=== PATIENT | female | born 2000 ===

== ENCOUNTER 2018-03-26 17:22 | Emergency (ER) | payer MEDICAID ==
[2018-03-26 18:27] VITALS: BMI 20.7
[2018-03-26] MEDS ORDERED: Lactated Ringer's 1,000 ML IV SCH (18:45)
[2018-03-26 19:21] LABS: SQUAMOUS EPITHIAL 4 /hpf (0-5); URINE BACTERIA OCC (<OCC); URINE BILIRUBIN NEGATIVE (NEGATIVE); URINE BLOOD NEGATIVE (NEGATIVE); URINE CLARITY CLOUDY (Clear); URINE COLOR YELLOW (YELLOW); URINE GLUCOSE (UA) NEG (Normal); URINE LEUKOCYTE ESTERASE LARGE Leu/uL (Negative); URINE PROTEIN 30 mg/dL (NEGATIVE); URINE UROBILINOGEN 0.2-1.0 mg/dL (0.2-1.0)
[2018-03-26 19:22] LABS: URIC ACID 7.3 mg/Dl (2.2-7.5)
[2018-03-26 20:17] LABS: BASO % 0.4 % (0.0-2.0); EOS % 0.7 % (0.0-4.0); HEMOGLOBIN 11.7 g/dL (12.0-16.0); LYMPH # 1.4 K/uL (1.0-4.3); LYMPH % 22.6 % (20.0-40.0); MEAN CELL VOLUME 84.4 fl (81.0-99.0); MEAN CORPUSCULAR HEMOGLOBIN 28.3 pg (27.0-31.0); MEAN CORPUSCULAR HGB CONC 33.5 g/dL (33.0-37.0); MEAN PLATELET VOLUME 11.5 fl (7.2-11.7); MONO # 0.9 K/uL (0.0-0.8); NEUT # 3.9 K/uL (1.8-7.0); NEUT % 62.3 % (50.0-75.0); NRBC % 0.5 % (0.0-0.0); RBC 4.15 Mil/uL (3.80-5.20); RED CELL DISTRIBUTION WIDTH 13.3 % (11.5-14.5); WHITE BLOOD COUNT 6.3 K/uL (4.8-10.8)
[2018-03-26 20:56] LABS: ALBUMIN 3.1 g/dL (3.5-5.0); ALT/SGPT 28 U/L (9-52); AST/SGOT 32 U/L (14-36); BLOOD UREA NITROGEN 9 mg/dl (7-17); CALCIUM 9.1 mg/dL (8.4-10.2); GFR NON-AFRICAN AMERICAN > 60
--- NOTE | 2018-03-26 22:18 | OBHP ---
Datetime: 03/26/2018 18:33 IP Adm Impression: , intrauterine IP Admit Plan: Observation/Evaluation; Discharge home Admit Comment, IP Provider: 17 yo G1 at 32+4 wks w/ EDC 05/17/2018 by 24 wk u/s who was sent from [facility] for BP 135/86, denies EDWARDS, reports seeing spots when feeling dizzy, currently feeling dizzy and seei ng spots earlier, last ate at 1 pm. Pt also reports lower abd pain coming and going. Pt denies LOF, VB, dysuria, and reports feeling movement. PMH: Healthy PSH: None Meds: PNVs All: NKDA Fam hx: PGF and MGM , both had DM Bait Packer hx: menarche at 10 yo, reg periods Pt denies STDs and abn paps PE: AFVSS Gen'l: pt appears comfortable lying in bed Heart: RRR Chest: Lungs CTA b/l Abd: soft, NT, gravid Ext: b/l pedal edema, 1+ swelling DTRs: 3+ VE: Deferred EFM: as above [place]: as above A/P: 17 yo G1 at 32+4 wks sent from clinic for BP 135/86 w/ c/o dizziness IVF and PO water given Pt reports feeling better PEC labs normal, urine protein 30 NST reactive Pt discharged home w/ PEC precautions and told to do 24 hour and has a f/u appointment on 03/31/20 18 Extremities - PN: Normal Abdomen - PN: Normal Back - PN: Normal Lungs - PN: Normal Heart - PN: Normal Neurologic - PN: Normal General - PN: Normal FHR - Baseline A Provider: 140's Membranes, Provider: Intact Contraction Comments Provider: irritability Comments, ACOG Physical Exam: Extremities: positive pedal edema, 1+ edema DTRs: 3+ P Spec: FFN done and caused bleeding VE: closed/ long/ -3 at 2004 EGA AdmitDate IP: 32.4 Vital Signs Provider: Reviewed IP Chief Complaint: Signs/Symptoms Gestational HTN NICHD Variability Prov Fetus A: Moderate 6-25bpm NICHD Accel Fetus A IP Provider: 15X15 FHR Category Provider Fetus A: Category I NICHD Decel Fetus A IP Provider: None Genitourinary Exam: Normal DTRs - PN: Abnormal
--- NOTE | 2018-03-26 22:18 | OBDCSUM ---
Datetime: 03/26/2018 22:16 Discharged to, Provider: Home Follow up at, Provider: Clinic Disch Instr Diet: Regular Discharge Instructions, Provider: Routine instructions given Discharge Time: 03/26/2018 22:16 Follow up in weeks, Provider: 03/31/2018 Discharge Diagnosis Prov Other: Elevated BP and dizziness at 32+ weeks Datetime: 03/26/2018 22:05 Discharged to, Provider: Home Follow up at, Provider: [facility] Disch Instr Diet: Regular Discharge Time: 03/26/2018 22:05 Follow up in weeks, Provider: Next Scheduled visit
[2018-03-27 02:55] VITALS: BP 129/76; PULSE 69; RESP 17; TEMP 98; O2SAT 100
== END 2018-03-26 22:30 | disposition home or self-care (01) ==
LOC: H.EROB2 17:27
DX: O26.893 Other specified pregnancy related conditions, third trimester (principal); Z3A.32 32 weeks gestation of pregnancy; R42 Dizziness and giddiness
CPT/HCPCS: 80053; 81003; 83615; 84550; 85025; 87086; 99283; J7120

== ENCOUNTER 2018-04-02 14:50 | Inpatient (IN) | payer MEDICAID ==
[2018-04-02 15:05] VITALS: BMI 21.6
[2018-04-02 16:37] LABS: HEMOGLOBIN 11.6 g/dL (12.0-16.0); MEAN CELL VOLUME 84.1 fl (81.0-99.0); MEAN CORPUSCULAR HEMOGLOBIN 28.2 pg (27.0-31.0); MEAN CORPUSCULAR HGB CONC 33.6 g/dL (33.0-37.0); RBC 4.1 Mil/uL (3.80-5.20); RED CELL DISTRIBUTION WIDTH 13.5 % (11.5-14.5); WHITE BLOOD COUNT 5.9 K/uL (4.8-10.8)
[2018-04-02 16:44] LABS: SQUAMOUS EPITHIAL 3 /hpf (0-5); URINE BACTERIA RARE (<OCC); URINE BILIRUBIN NEGATIVE (NEGATIVE); URINE BLOOD NEGATIVE (NEGATIVE); URINE CLARITY CLOUDY (Clear); URINE COLOR YELLOW (YELLOW); URINE GLUCOSE (UA) NEG (Normal); URINE LEUKOCYTE ESTERASE LARGE Leu/uL (Negative); URINE PROTEIN 100 mg/dL (NEGATIVE); URINE UROBILINOGEN 0.2-1.0 mg/dL (0.2-1.0)
[2018-04-02 17:03] LABS: ALT/SGPT 30 U/L (9-52); AST/SGOT 31 U/L (14-36); BLOOD UREA NITROGEN 8 mg/dl (7-17); GFR NON-AFRICAN AMERICAN > 60; URIC ACID 7.4 mg/Dl (2.2-7.5)
[2018-04-02] MEDS ORDERED: Magnesium Sul 40GM/1L SW 40 GM/1,000 ML ML IV ONE (17:53)
[2018-04-02] MEDS ORDERED: Magnesium Sulfate 4 gm/100 ml 4 GM/100 ML BAG IV ONE (17:53)
[2018-04-02] MEDS: Lactated Ringer's 1,000 ML IV SCH (18:00)
--- NOTE | 2018-04-02 18:10 | OBHP ---
Datetime: 04/02/2018 18:00 IP Adm Impression: , intrauterine ; No Active Labor; Intact Membranes IP Admit Plan: Admit to unit Admit Comment, IP Provider: 17yo IUP at 33w4d sent form [facility] for elevated BP. She states that s he has felt weak on and off for 1w. She felt more while at [facility] (too hot there). After leaving and be ing sent over for elevated BP ,she felt better No EDWARDS; No visual dist. 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) PMH: denies PSH: denies NKA PSoH: denies smoking ETOH drugs PFH: denies A: IUP at 33w4d Hx elevated BP / proteinuria PLAN: Pelvic Type - PN: Not Done Extremities - PN: Normal Abdomen - PN: Normal Back - PN: Normal Breast - PN: Not Done Lungs - PN: Normal Heart - PN: Normal Thyroid - PN: Normal Neurologic - PN: Normal HEENT - PN: Normal General - PN: Normal FHR - Baseline A Provider: 130 IP Hx Assessment: The History has been Reviewed and is Current EGA AdmitDate IP: 33.4 IP Chief Complaint: Signs/Symptoms Gestational HTN NICHD Variability Prov Fetus A: Moderate 6-25bpm NICHD Accel Fetus A IP Provider: 15X15 FHR Category Provider Fetus A: Category I NICHD Decel Fetus A IP Provider: None Genitourinary Exam: Normal DTRs - PN: Not Done Datetime: 04/02/2018 15:45 Presentation-Admit: Vertex Vital Signs Provider: Reviewed Vital Signs Provider Details: BP 131/66 repeat 135/86
--- NOTE | 2018-04-02 18:16 | OBADHP ---
Datetime: 04/02/2018 18:00 Admit Comment, IP Provider: 17yo IUP at 33w4d sent form [facility] for elevated BP. She states that s he has felt weak on and off for 1w. She felt more while at [facility] (too hot there). After leaving and be ing sent over for elevated BP ,she felt better No EDWARDS; No visual dist. 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 She understood and her questions answered. Dr Gan neonatology aware of admission Pelvic Type - PN: Not Done Extremities - PN: Normal Abdomen - PN: Normal Back - PN: Normal Breast - PN: Not Done Lungs - PN: Normal Heart - PN: Normal Thyroid - PN: Normal Neurologic - PN: Normal HEENT - PN: Normal General - PN: Normal FHR - Baseline A Provider: 130 Comments, ACOG Physical Exam: BP startin at 16:00pm 141/88 at 16:30pm 151/95 17:00pm 163/100 17:02pm 148/95 IP Hx Assessment: The History has been Reviewed and is Current IP Chief Complaint: Signs/Symptoms Gestational HTN NICHD Variability Prov Fetus A: Moderate 6-25bpm NICHD Accel Fetus A IP Provider: 15X15 FHR Category Provider Fetus A: Category I NICHD Decel Fetus A IP Provider: None Genitourinary Exam: Normal DTRs - PN: Not Done EGA AdmitDate IP: 33.4 IP Adm Impression: , intrauterine ; No Active Labor; Intact Membranes IP Admit Plan: Admit to unit Datetime: 04/02/2018 15:45 Presentation-Admit: Vertex Vital Signs Provider: Reviewed Vital Signs Provider Details: BP 131/66 repeat 135/86 Datetime: 03/26/2018 18:33 Membranes, Provider: Intact Contraction Comments Provider: irritability
[2018-04-02] MEDS: Betamethasone Soluspan 30 mg/5mL Inj Susp IM SCH (18:38)
[2018-04-03] MEDS: Betamethasone Soluspan 30 mg/5mL Inj Susp IM SCH (06:19)
[2018-04-03] MEDS: Lactated Ringer's 1,000 ML IV SCH (07:20)
[2018-04-03 08:05] LABS: HEMOGLOBIN 10.9 g/dL (12.0-16.0); MEAN CELL VOLUME 84.3 fl (81.0-99.0); MEAN CORPUSCULAR HEMOGLOBIN 28.4 pg (27.0-31.0); MEAN CORPUSCULAR HGB CONC 33.7 g/dL (33.0-37.0); RBC 3.85 Mil/uL (3.80-5.20); RED CELL DISTRIBUTION WIDTH 13.3 % (11.5-14.5); WHITE BLOOD COUNT 9.6 K/uL (4.8-10.8)
[2018-04-03 08:28] LABS: ALBUMIN 2.8 g/dL (3.5-5.0); ALT/SGPT 30 U/L (9-52); AST/SGOT 34 U/L (14-36); BLOOD UREA NITROGEN 9 mg/dl (7-17); CALCIUM 7.3 mg/dL (8.4-10.2); GFR NON-AFRICAN AMERICAN > 60; URIC ACID 8.3 mg/Dl (2.2-7.5)
--- NOTE | 2018-04-03 14:47 | RAD ---
Date of service: 04/03/2018 PROCEDURE: CHEST RADIOGRAPH, 1 VIEW HISTORY: Chest pain, SOB COMPARISON: None available. FINDINGS: LUNGS: Poor inspiration with low lung volumes, crowded exam of bibasilar atelectasis. Developing infiltrates could be excluded with followup radiographs. PLEURA: No pneumothorax or pleural fluid seen. CARDIOVASCULAR: Normal. OSSEOUS STRUCTURES: No significant abnormalities. VISUALIZED UPPER ABDOMEN: Normal. OTHER FINDINGS: None. IMPRESSION: Poor inspiration with low lung volumes, crowded exam of bibasilar atelectasis. Developing infiltrates could be excluded with followup radiographs.
[2018-04-03] MEDS ORDERED: Magnesium Sul 40GM/1L SW 40 GM/1,000 ML ML IV ONE ×2 (17:48→18:49)
[2018-04-03 19:13] LABS: URINE CREATININE 38.5 mg/dL
[2018-04-03 19:15] LABS: U CREAT 24HOUR URINE 1193.5 mg/24hr (800-2800); URINE CREATININE 38.5 mg/dl
[2018-04-04] MEDS: Lactated Ringer's 1,000 ML IV SCH (05:00)
--- NOTE | 2018-04-04 08:22 | CARD ---
APPROVED REPORT Date of service: 04/03/2018 EKG Measurement Heart [id number] <Conclusion> Sinus tachycardia Otherwise normal ECG
--- NOTE | 2018-04-04 10:08 | OBPN ---
Datetime: 04/04/2018 09:09 IP Progress Impression: Reassuring heart rate IP Informed Consent Obtain: Vaginal Delivery IP Procedures: Ultrasound IP Progress Plan: Induction Contraction Comments Provider: no FHR - Baseline A Provider: 130 IP Progress Note Comment: S: Patient seen and examined at bedside with Dr. Verduzco. Still c/o inter mittent blurred vision and dizziness. Denies any pain O: VS reviewed, afebrile PE: Cervix: FT,Thick, -4 U/s done : Vertex presentation A/P: 17 y/o female admitted for evaluation and treatment of PEC/IOL. - Dr. Gibson was called who recommended IOL due to worsening proteneuria _ new onset of blurred va - Start IOL, Cytotec 50 - Re-examination and re-evaluation - C/w Mg+ , follow up labs - Regular diet for break fast, NPO after Case discussed with Dr. Verduzco --- Licha Marquez, PGY II OB attending addendum: Patient seen and examined by me agree with above assessment and plan. Patient signed out to oncoming in-house partition assembly machine operator OB Dr. Ridley... Cytotec on hold until patient se en by Dr. Ridley who will decide whether to proceed with Cervidil instead. Vital Signs Provider: Reviewed NICHD Accel Fetus A IP Provider: 15X15 FHR Category Provider Fetus A: Category I NICHD Variability Prov Fetus A: Moderate 6-25bpm Dilatation, Provider: FT Effacement, Provider: thick Station, Provider: -4 NICHD Decel Fetus A IP Provider: None Datetime: 04/02/2018 15:45 Presentation-Admit: Vertex Vital Signs Provider Details: BP 131/66 repeat 135/86 Datetime: 03/26/2018 18:33 Membranes, Provider: Intact
--- NOTE | 2018-04-04 12:25 | OBPN ---
Datetime: 04/04/2018 12:21 IP Progress Impression Other: Severe pre-eclampsia IP Progress Impression: Reassuring heart rate IP Procedures: Sterile Vag Exam IP Progress Plan: Induction; Cervical Ripening Membranes, Provider: Intact Contraction Comments Provider: None FHR - Baseline A Provider: 120's IP Progress Note Comment: 17 yo G1 at 33+6 wks w/ severe pre-eclampsia, 24 hr urine protein 2077 mg, w/ sx of blurred/ double vision and dizziness Induction of labor recommended as per Dr. Gibson Will start induction of labor w cervidil NICHD Accel Fetus A IP Provider: 15X15 FHR Category Provider Fetus A: Category I NICHD Variability Prov Fetus A: Moderate 6-25bpm Dilatation, Provider: 0 Effacement, Provider: 0 Station, Provider: -3 NICHD Decel Fetus A IP Provider: None; Early
[2018-04-04] MEDS ORDERED: Lactated Ringer's 1,000 ML IV SCH (13:58)
[2018-04-04] MEDS ORDERED: Nalbuphine 20 mg/ml Inj (1 ml) IVP ONE (18:51)
[2018-04-04] MEDS ORDERED: Promethazine 25 MG in Sodium Chloride 0.9% 50 ML IVPB ONE (18:52)
--- NOTE | 2018-04-04 20:20 | OBPN ---
Datetime: 04/04/2018 20:13 IP Progress Plan Other: Discontinue cervidil IP Progress Impression Other: Severe pre-eclamsia IP Procedures: Sterile Vag Exam Membranes, Provider: Intact Contraction Comments Provider: Q1-2 FHR - Baseline A Provider: 140's IP Progress Note Comment: 17 yo G1 at 33+6 wks for induction of labor for severe pre-eclampsia, s/p cervidil placed at 1:45 pm Pt has received nubain and phenergan for pain Cervidil pulled at 8:08 pm Will follow [facility] and consider low pitocin over night if needed FHR Category Provider Fetus A: Category II NICHD Variability Prov Fetus A: Minimal - Undetectable to <5bpm Dilatation, Provider: 0 Effacement, Provider: 0 Station, Provider: -3 NICHD Decel Fetus A IP Provider: None
[2018-04-05] MEDS ORDERED: Magnesium Sul 40GM/1L SW 40 GM/1,000 ML ML IV ONE (02:19)
--- NOTE | 2018-04-05 04:03 | OBPN ---
Datetime: 04/05/2018 03:55 IP Progress Impression: Gest. HTN/PreEclampsia/Eclampsia IP Progress Plan: Continue present management Membranes, Provider: Intact FHR - Baseline A Provider: 140's IP Progress Note Comment: 17 yo G1 at 34 weeks w/ SOB and CP. Oxygen saturation was 89 on RA and we nt up to 92 w/ oxygen facemask Medicine hospitalist, Dr. Neymar Weaver, was called and he examined and spoke to the pt He explained that she had evidence of ateletcasis at the bases of her lungs and her lying flat, he r abdomen, anxiety and recent nubain made it more difficult for her to take adequate deep br eaths he was speaking to her, her oxygen saturation went up to 95 on RA because she was sitting up an d had more room to take deeper breaths He encouraged her to take slow deep breaths Incentive spirometer was ordered to be placeds in her room FHR Category Provider Fetus A: Category II NICHD Variability Prov Fetus A: Moderate 6-25bpm NICHD Decel Fetus A IP Provider: None
[2018-04-05] MEDS ORDERED: Lactated Ringer's 1,000 ML IV SCH (08:30)
--- NOTE | 2018-04-05 10:40 | OBPN ---
Datetime: 04/05/2018 10:31 IP Informed Consent Obtain: Section Delivery Contraction Comments Provider: infrequent FHR - Baseline A Provider: 160 IP Progress Note Comment: Patient evaluated, sitting in tripod position on O2 mask. Patient has had for the last 7 hours difficulty breathing and before that was complaining on CP. Patient has been on an O2 mask and unable to sustain O2 saturation above 95%. Patient has had O2 saturations around 90-92 , has been evaluated by medicine, determined differential is basilar atelectasis, no other organic ca use. At this point because unable to keep an approprate oxygenation that would allow adequate perfusi on to the fetus, discussed with patient decision is to do . [id number] mod, anne, accels, no dec els. [place]=infrequent. Discussed with patient risks/benefits of surgery, consent signed, patient has r eceived 2 doses of Beta, neonatology alerted. Patient is in route to OR when available Vital Signs Provider: Reviewed NICHD Accel Fetus A IP Provider: 15X15 NICHD Variability Prov Fetus A: Moderate 6-25bpm NICHD Decel Fetus A IP Provider: None
[2018-04-05 10:43] LABS: BASO % 0.2 % (0.0-2.0); EOS % 0.1 % (0.0-4.0); HEMOGLOBIN 10.2 g/dL (12.0-16.0); LYMPH # 1.3 K/uL (1.0-4.3); LYMPH % 9.7 % (20.0-40.0); MEAN CELL VOLUME 84.6 fl (81.0-99.0); MEAN CORPUSCULAR HEMOGLOBIN 28.2 pg (27.0-31.0); MEAN CORPUSCULAR HGB CONC 33.4 g/dL (33.0-37.0); MEAN PLATELET VOLUME 10.7 fl (7.2-11.7); MONO # 2.1 K/uL (0.0-0.8); MONO % 15.5 % (0.0-10.0); NEUT # 9.9 K/uL (1.8-7.0); NEUT % 74.5 % (50.0-75.0); NRBC % 0.9 % (0.0-0.0); PLATELET COUNT 168 K/uL (130-400); RBC 3.62 Mil/uL (3.80-5.20); RED CELL DISTRIBUTION WIDTH 14.1 % (11.5-14.5); WHITE BLOOD COUNT 13.3 K/uL (4.8-10.8)
[2018-04-05] MEDS ORDERED: ceFAZolin 2 GM in Sodium Chloride 0.9% 100 ML IVPB ONE (11:00)
[2018-04-05] MEDS ORDERED: OXYTOCIN/0.9 % NS 20 UNIT/1,000 ML BAG IV SCH (11:15)
[2018-04-05] MEDS ORDERED: Oxytocin 30 UNIT 30 UNITS/500 ML BAG IV ONE ×2 (11:15→11:17)
[2018-04-05] MEDS ORDERED: OXYTOCIN/0.9 % NS 20 UNIT/1,000 ML BAG IV ONE (11:17)
[2018-04-05] MEDS ORDERED: ePHEDrine 50 mg/ml Inj ONE (11:32)
[2018-04-05] MEDS ORDERED: Morphine 1 mg/ml preservative-free Inj(Duramorph) ONE (11:32)
[2018-04-05] MEDS ORDERED: Oxycodone/Acetaminophen 5/325 mg Tab PO PRN (12:41)
[2018-04-05] MEDS ORDERED: Simethicone 80 mg Chewtab PO PRN (13:07)
[2018-04-05 13:18] LABS: BANDS 1 % (0-2); HYPOCHROMIC SLIGHT; LYMPHOCYTE 5 % (20-50); MONOCYTE 17 % (0-10); NEUTROPHIL 77 % (42-75); PLATELET ESTIMATE NORMAL (NORMAL); TOTAL CELLS COUNTED 100
[2018-04-05 13:19] LABS: TOXIC GRANULATION PRESENT
--- NOTE | 2018-04-05 13:23 | OBDS ---
DELIVERY PERSONNEL Delivery Doctor: Hai Delgado MD Scrub Nurse: Kae Peters Sizing Machine Operator: Briana Guzman RN Anesthesiologist: Josiane Ricci MD MATERNAL INFORMATION Delivery Anesthesia: Spinal Medications in Delivery: Ancef 2g, Pitocin Placenta Cultured: No Maternal Complications: Other Other Maternal Complications: Pt's V/S Sat level at 88% Provider Comments: Surgeon: Dr. Delgdao Milling Machinist: Dr. Knight, OB Fellow Pre-operative Dx: Pre-eclampsia with severe features at 34 weeks, decreased maternal O2 saturation on non-rebreather O2 Surgery: Primary LTCS Post-op: same Findings: live female infant 4 lbs 13 oz, 9/9, cephalic, clear fluids, grossly nml tubes, ovaries, placenta Anesthesia: Spinal by Dr. Ricci EBL: 800mL UO:200 mL Total input : 1800mL Complications: NOne Condition: stable Pathology: Placenta and cord blood LABOR SUMMARY EDC: 05/17/2018 00:00 No. Babies in Womb: 1 Attempted: No Labor Anesthesia: Intrathecal LABOR INFORMATION Reason for Induction: Gest. HTN/PreEclampsia/Eclampsia Cervical Ripening Agents: Cervidil Oxytocin: Induction Group B Beta Strep: Not Done Steroids Given: Partial Course Other Reason Not Administered: 12 hrs x2 dose STAGES OF LABOR Stage 3 hrs: 0 Stage 3 min: 1 CSECTION DELIVERY CSection Urgency: Emergency CSection Incidence: Primary Labor: Labor Elective: Elective CSection Incision: Lower Uterine Transverse BABY A INFORMATION Infant Delivery Date/Time: 04/05/2018 12:03 Method of Delivery: Born in Route : No : N/A Forceps: N/A Vacuum Extraction: N/A Shoulder Dystocia : No SHOULDER DYSTOCIA BABY A Infant Delivery Date/Time: 04/05/2018 12:03 PRESENTATION/POSITION BABY A Presentation: Cephalic Cephalic Presentation: N/A Breech Presentation: N/A PLACENTA INFORMATION BABY A Placenta Delivery Time : 04/05/2018 12:04 Placenta Method of Delivery: Manual Removal Placenta Status: Delivered SCORES BABY A Heart Rate 1 min: >100 bpm Resp Effort 1 min: Good Cry Reflex Irritability 1 min: Cough or Sneeze or Pulls Away Muscle Tone 1 min: Active Motion Color 1 min: Body [place], Extremities Blue Resuscitation Effort 1 min: N/A SCORE 1 MIN: 9 Heart Rate 5 min: >100 bpm Resp Effort 5 min: Good Cry Reflex Irritability 5 min: Cough or Sneeze or Pulls Away Muscle Tone 5 min: Active Motion Color 5 min: Body [place], Extremities Blue Resuscitation Effort 5 min: N/A SCORE 5 MIN: 9 INFANT INFORMATION BABY A Gestational Age at Delivery: 34.0 Gestational Status: Term Infant Outcome : Liveborn Condition : Stable Sex: Female IDENTIFICATION/MEDS BABY A ID Band Number: [id number] ID Band Location: Left Leg; Left Arm WEIGHT/LENGTH BABY A Infant Birthweight (gms): 2180 Infant Weight (lb): 4 Weight (oz): 13 CORD INFORMATION BABY A No. Cord Vessels: 3 Nuchal Cord : N/A Infant Cord pH Baby Venous: 7.37 Cord Blood Taken: Yes Suction: None ASSESSMENT BABY A Infant Complications: None Physical Findings at Delivery: Within Normal Limits Respirations: Appears Normal Guest History Clerk/ALS Called : Yes Care By: Dr Gan and Bonny Murguia RN/ Mahin Morrison RN Transferred To: Nursery
[2018-04-05] MEDS ORDERED: Iodixanol 320 MG/ML 100 ML BOTTLE IV ONE (14:42)
[2018-04-05] MEDS ORDERED: Sodium Chloride 0.9% 50 ML IV ONE (14:42)
--- NOTE | 2018-04-05 15:27 | CT ---
Date of service: 04/05/2018 PROCEDURE: CT Chest with contrast (Pulmonary Angiogram) HISTORY: hypoxia COMPARISON: None available. TECHNIQUE: Axial computed tomography images were obtained of the chest in the pulmonary arterial phase of enhancement. Coronal and sagittal reformatted images were created and reviewed. Intravenous contrast dose: Visipaque 320, 99 cc Radiation dose: Total exam DLP = 205.36 mGy-cm. This CT exam was performed using one or more of the following dose reduction techniques: Automated exposure control, adjustment of the mA and/or kV according to patient size, and/or use of iterative reconstruction technique. FINDINGS: PULMONARY ARTERIES: Unremarkable. No pulmonary embolism. AORTA: No acute findings. No thoracic aortic aneurysm. LUNGS: Bilateral upper lobe infiltrates are identified, right greater than left as well as the lower lobes with likely related compression atelectasis the bilateral lower lobes. Right middle lobe infiltrate is also present. Central airways appear grossly clear. PLEURAL SPACES: [id number] bilateral pleural effusions are identified. No pneumothorax bilaterally. HEART: Cardiac size normal with the thoracic inlet unremarkable. Normal caliber thoracic aorta and main pulmonary artery segment is identified. No pericardial effusion. LYMPH NODES: No significant lymphadenopathy identified. BONES, CHEST WALL: Unremarkable. No fracture or destructive lesion. Focal laxity or deformity of the inferior thoracoabdominal wall junction simulating a hernia. OTHER FINDINGS: Unremarkable. IMPRESSION: Unremarkable CT pulmonary angiogram. No pulmonary embolus. Polylobar pneumonia identified with [id number] bilateral pleural effusions Ing compression atelectasis affecting the lower lobes bilaterally.
--- NOTE | 2018-04-05 16:01 | PCM.RRT ---
<Gwen Collado - Last Filed: 04/05/18 17:08> ARCHITECTURE ANALYST Nurse Assessment - Situation Location: labor Room Number: 521 ARCHITECTURE ANALYST Reason for Call: O2 Saturation below 90% ARCHITECTURE ANALYST Called By: RN - IV IV Inserted during ARCHITECTURE ANALYST?: No - Respiratory Oxygen Delivery Method: Venturi Mask Received Nebulizer Treatments: No Was the Patient Ventilated with Bag/Mask 100% O2?: No Secretions Suctioned?: No Was the Patient Intubated?: No Was the Patient Placed on a Ventilator?: No - Diagnostic Test Ordered EKG: Yes Chest X-Ray: No CT Scan: Yes Other Diagnostic Test Ordered: chest ct angiogram - Stat Labs Ordered ARCHITECTURE ANALYST Stat Labs Ordered: CBC, BMP, PT/PTT CPR started during ARCHITECTURE ANALYST?: No - Vital Signs Vital Signs: Rapid Response Vital Sign Blood Pressure 128/75 Pulse Rate 91 Respiratory Rate 16 Temperature 98.6 F Oxygen Saturation 97 - Time ARCHITECTURE ANALYST Ended Time ARCHITECTURE ANALYST Ended: 15:13 - Vital Signs at end of ARCHITECTURE ANALYST Vital Signs at end of ARCHITECTURE ANALYST: Rapid Response End Vital Sign Blood Pressure 117/71 Pulse Rate 100 Respiratory Rate 15 Temperature 98.1 F O2 Sat by Pulse Oximetry 98 - Recommendations ARCHITECTURE ANALYST Level of Care Recommendations: Remain in current setting I.Reason for ARCHITECTURE ANALYST - A) Acute Change in Patient: Subjective: ARCHITECTURE ANALYST was called by nurse for O2 saturation below 90% for a 17-year-old female 2 hours status-post Cesarian (33 weeks). Patient's recent medical history is positive for pre-eclampsia with severe features, shortness of breath, chest pain and previous episodes of desaturation into high 70's/low 80's as per RN. - Head Head Exam: ATRAUMATIC - Eyes Eye Exam: Normal appearance - Respiratory Exam Respiratory Exam: NORMAL BREATHING PATTERN - Neurological Exam Neurological Exam: Alert, Awake, Oriented x3 Plan - Assessment of Findings&Treatment Plan Location: Labor and Delivery Room: [facility] Time of ARCHITECTURE ANALYST: 2:05pm Time at end of ARCHITECTURE ANALYST: 2:20pm Hospitalist: Dr. Chowdhury Vitals at start of ARCHITECTURE ANALYST: BP: 131/79 HR: 96 RR: 16 T: 98.6F SpO2: 88% ARCHITECTURE ANALYST was called by nurse for O2 saturation below 90% for a 17-year-old female 2 hours status-post Cesarian (33+6 weeks). Patient's recent medical history is positive for pre-eclampsia with severe features, shortness of breath, chest pain and previous episodes of desaturation into high 70's/low 80's as per RN. Upon arrival the patient was on O2 va NC, SpO2 was 88% and in no acute distress. Venturi-mask was placed and saturation immediately increased to high 90's. EKG preformed bedside was unremarkable. CBC, CMP, and PT/PTT ordered. Patient remained alert, awake, and able to verbally answer questions throughout entire ARCHITECTURE ANALYST. Stat CT angiogram ordered to rule out PE. Medicine team will follow up with results for recommendation of further management. Orders placed during ARCHITECTURE ANALYST: CBC, CMP, PT/PTT, EKG, CT Angiogram Vitals at end of ARCHITECTURE ANALYST: BP: 117/71 HR: 100 RR: 15 T: 98.1F SpO2: 99% <Desiree Chowdhury - Last Filed: 04/05/18 17:25> ARCHITECTURE ANALYST Nurse Assessment - Vital Signs Vital Signs: Rapid Response Vital Sign Blood Pressure 128/75 Pulse Rate 91 Respiratory Rate 16 Temperature 98.6 F Oxygen Saturation 97 - Vital Signs at end of ARCHITECTURE ANALYST Vital Signs at end of ARCHITECTURE ANALYST: Rapid Response End Vital Sign Blood Pressure 117/71 Pulse Rate 100 Respiratory Rate 15 Temperature 98.1 F O2 Sat by Pulse Oximetry 98 Attending/Attestation - Attestation I have personally seen and examined this patient.: Yes I have fully participated in the care of the patient.: Yes I have reviewed all pertinent clinical information, including history, physical exam and plan: Yes Notes (Text): CTA Pulm ordered to r/o PE. -Unremarkable CT pulmonary angiogram. No pulmonary embolus. Polylobar pneumonia identified with [id number] bilateral pleural effusions Ing compression atelectasis affecting the lower lobes bilaterally. - Start IV Ceftriaxone and Azithromycin -Incentive Spirometry
[2018-04-05 16:11] LABS: PROTHROMBIN TIME 10.5 Seconds (9.8-13.1)
[2018-04-05 16:12] LABS: BASO % 0.1 % (0.0-2.0); HEMOGLOBIN 7.4 g/dL (12.0-16.0); LYMPH % 11.7 % (20.0-40.0); MEAN CELL VOLUME 84.8 fl (81.0-99.0); MEAN CORPUSCULAR HEMOGLOBIN 28.1 pg (27.0-31.0); MEAN CORPUSCULAR HGB CONC 33.1 g/dL (33.0-37.0); MEAN PLATELET VOLUME 10.6 fl (7.2-11.7); MONO # 1.8 K/uL (0.0-0.8); MONO % 10.4 % (0.0-10.0); NEUT # 13.3 K/uL (1.8-7.0); NEUT % 77.8 % (50.0-75.0); NRBC % 1.2 % (0.0-0.0); RBC 2.64 Mil/uL (3.80-5.20); RED CELL DISTRIBUTION WIDTH 13.7 % (11.5-14.5); WHITE BLOOD COUNT 17.1 K/uL (4.8-10.8)
[2018-04-05 16:13] LABS: PARTIAL THROMBOPLASTIN TIME 31.6 Seconds (25.6-37.1)
[2018-04-05] MEDS ORDERED: Azithromycin 500 MG in Sodium Chloride 0.9% 250 ML IVPB SCH (16:15)
[2018-04-05 16:43] LABS: BLOOD UREA NITROGEN 14 mg/dl (7-17); CALCIUM 7.1 mg/dL (8.4-10.2); GFR NON-AFRICAN AMERICAN > 60
--- NOTE | 2018-04-05 19:59 | CARD ---
APPROVED REPORT Date of service: 04/05/2018 EKG Measurement Heart [id number] SD [id number] [id number] <Conclusion> Normal sinus rhythm Normal ECG
--- NOTE | 2018-04-05 23:22 | OP ---
PROCEDURE DATE: 04/05/2018 SURGEON: Madina Delgado MD DEPORTATION OFFICER: Dr. Knight, OB Fellow PREOPERATIVE DIAGNOSES: 1. Preeclampsia with severe features at 34 weeks. 2. Maternal saturation at 90%, on non-rebreather mask. POSTOPERATIVE DIAGNOSES: 1. Preeclampsia with severe features at 34 weeks. 2. Maternal saturation at 90%, on non-rebreather mask. PROCEDURE: Low-transverse section. FINDINGS: Live female infant, 4 pounds 15 ounces, 9 and 9 Apgars, cephalic, clear fluid. Grossly normal tubes, ovaries, placenta, and uterus. ESTIMATED BLOOD LOSS: 800 mL. URINE OUTPUT: 200 mL. TOTAL FLUID INPUT: 1500 mL. ANESTHESIA: Spinal. ANESTHESIA ADMINISTERED BY: Grover Ricci MD COMPLICATIONS: None. CONDITION: Stable. PATHOLOGY SPECIMEN: Placenta and cord blood. INDICATION: This is a 17-year-old G1, P0, presented to Labor and Delivery at 33 weeks and 4 days with a diagnosis of preeclampsia with severe features. The patient was given betamethasone x2 doses over the course of her induction and was induced with cervical ripening agents. The patient's blood pressure ranged 140s to 150s over 80s to 90s. She had proteinuria over 2000. Otherwise, the platelets, liver enzymes and hemoglobin were stable. The patient was found to start having decreased saturations, ranging in the high 80s and in low 90s despite non-rebreather mask. The patient was evaluated by Medicine, found to have basilar atelectasis but despite giving the patient supplemental oxygen in tripod position, the patient was unable to establish sufficient oxygen saturation over 95%. We should know other signs or symptoms expect she did complain of chest pain point that the patient was from the delivery and we should not able to keep oxygen saturation above 95%, we would proceed with for delivery. The patient was advised of the risks and benefits of the procedure including risks of bleeding, infection, and damage to surrounding organs such as bowel, bladder, ureter, or uterus. The patient verbalized understanding of risks and signed the informed consent. DESCRIPTION OF PROCEDURE: The patient was taken to the OR. Ancef was given preoperatively. SCDs were placed bilaterally. The patient was prepped and draped in a normal sterile fashion in dorsal supine position with a leftward tilt. A Pfannenstiel skin incision was made with a scalpel and carried through to the underlying layer of fascia with the scalpel and the Bovie. The fascia was incised in the midline. The incision was extended laterally with the Bovie. We used Leopoldo clamps to tent up the inferior aspect of the incision, which we dissected off the underlying rectus abdominis muscles with the Bovie. In a similar fashion, we tented up the superior aspect of this incision which we dissected off the underlying rectus abdominis muscles with the Bovie. The muscles were bluntly at the midline. The peritoneum was identified and entered with Metzenbaum scissors. A bladder flap was created with the Metzenbaum scissors. The lower uterine segment was incised in a transverse fashion with the scalpel. The uterine cavity was entered. The incision was extended with bandage scissors. Clear fluid was noted. The was delivered in cephalic presentation followed by shoulders and rest of the infant atraumatically. Cord was clamped and cut. Mouth and nares were suctioned. was handed off to the awaiting informatics application analyst and pediatric team. The placenta was extracted manually. The uterus was exteriorized, cleared of all clots. The uterine incision was repaired with an 0 Vicryl stitch and then imbricating with an 0 Monocryl stitch. The hysterotomy site appeared to be hemostatic. The uterus was returned to the abdomen. Gutters were cleared of all clots. The peritoneum was closed with a 2-0 Monocryl. The muscles were reapproximated with the same stitch. Some bleeders on the muscle were cauterized with the Bovie. The fascia was closed with 0 Vicryl stitch, and the skin was closed with a 4-0 Monocryl. Sponge, lap, and needle counts were correct x4. The patient was taken to the recovery room where she was re-evaluated for decreasing maternal oxygen saturation. There were no other complications. Madina Delgado MD
[2018-04-06 01:14] LABS: BASO % 0.1 % (0.0-2.0); HEMOGLOBIN 7.5 g/dL (12.0-16.0); LYMPH % 11.8 % (20.0-40.0); MEAN CELL VOLUME 84.9 fl (81.0-99.0); MONO # 2.3 K/uL (0.0-0.8); NEUT % 79.1 % (50.0-75.0); NRBC % 1.2 % (0.0-0.0); RBC 2.68 Mil/uL (3.80-5.20); RED CELL DISTRIBUTION WIDTH 13.5 % (11.5-14.5); WHITE BLOOD COUNT 25.3 K/uL (4.8-10.8)
[2018-04-06 01:25] LABS: ALB/GLOB RATIO 0.9 (1.0-2.1); ALBUMIN 1.7 g/dL (3.5-5.0); ALT/SGPT 97 U/L (9-52); AST/SGOT 103 U/L (14-36); BLOOD UREA NITROGEN 18 mg/dl (7-17); CALCIUM 6.8 mg/dL (8.4-10.2); GFR NON-AFRICAN AMERICAN > 60; URIC ACID 8.3 mg/Dl (2.2-7.5)
[2018-04-06] MEDS ORDERED: Sod Polystyrene Sulf 15 gm/60 ml Susp PO ONE (08:11)
[2018-04-06] MEDS ORDERED: Multivitamin With Minerals Tab PO SCH ×2 (09:00)
--- NOTE | 2018-04-06 10:05 | CP.PCM.CON ---
Addendum entered and electronically signed by Gwen Collado MD 04/06/18 10: 31: Patient afebrile (Tmax 99.4F). Leukocytosis (WBC 25.3) likely reactive due to Cesarian section; will monitor. Original Note: <Gwen Collado - Last Filed: 04/06/18 10:30> History of Present Illness - History of Present Illness History of Present Illness: 17-year-old female status-post cesarian (04/05/18, 33+6, pre-eclampsia w/severe features) was seen bedside on room air in no acute distress. Yesterday (04/05/18 ) an FIELD ADVISOR was called by RN for O2 desaturations (80's). Patient was put on venturi mask and saturation immediately increased to 99%. CT Angiogram was ordered to rule out PE. Clinically patient reports that her shortness of breath and chest pain have significantly improved. Patient complains of minimal dizziness from lying to sitting position which lasts a few seconds and then resolves. Ambulating with help from RN. She denies nausea, vomiting, change in vision, palpitations and extremity edema/pain. Past Patient History - Past Social History Smoking Status: Never Smoked Meds Allergies/Adverse Reactions: Allergies Allergy/AdvReac Type Severity Reaction Status Date / Time No Known Allergies Allergy Verified 03/26/18 18:27 - Medications Medications: Current Medications Lactated Ringer's (Lactated Ringer's) 1,000 mls @ 125 mls/hr IV .Q8H [facility] Last Admin: 04/05/18 08:00 Dose: 125 mls/hr Ceftriaxone Sodium 1 gm/ (Sodium Chloride) 100 mls @ 100 mls/hr IVPB DAILY [facility] PRN Reason: Protocol Last Admin: 04/05/18 18:00 Dose: 100 mls/hr Azithromycin 500 mg/ Sodium (Chloride) 250 mls @ 250 mls/hr IVPB DAILY [facility] PRN Reason: Protocol Last Admin: 04/05/18 16:37 Dose: 250 mls/hr Ibuprofen (Motrin Tab) 600 mg PO Q6H PRN PRN Reason: Pain, Mild (1-3) Labetalol HCl (Trandate) 100 mg PO Q12H [facility] Last Admin: 04/06/18 03:22 Dose: Not Given Multivitamins/Minerals (Therapeutic-M Tab) 1 tab PO DAILY [facility] Oxycodone/Acetaminophen (Percocet 5/325 Mg Tab) 1 tab PO Q4 PRN PRN Reason: Pain, moderate (4-7) Stop: 04/08/18 12:42 Last Admin: 04/05/18 20:47 Dose: 1 tab Simethicone (Mylicon Chew Tab) 80 mg PO PRN PRN PRN Reason: abdominal pain Physical Exam - Constitutional Appears: Well, No Acute Distress - Head Exam Head Exam: ATRAUMATIC, NORMAL INSPECTION - Eye Exam Eye Exam: Normal appearance - ENT Exam ENT Exam: Mucous Membranes Moist - Neck Exam Neck exam: Positive for: Full Rom - Respiratory Exam Respiratory Exam: Clear to Auscultation Bilateral, NORMAL BREATHING PATTERN. absent: Chest Wall Tenderness, Rales, Wheezes, Respiratory Distress - Cardiovascular Exam Cardiovascular Exam: REGULAR RHYTHM - GI/Abdominal Exam GI & Abdominal Exam: Normal Bowel Sounds Additional comments: Cesarian section dressing dry and intact - Neurological Exam Neurological exam: Alert, Oriented x3 - Psychiatric Exam Psychiatric exam: Normal Affect, Normal Mood - Skin Skin Exam: Normal Color Results - Vital Signs Recent Vital Signs: Last Vital Signs Temp 99.4 F 04/05/18 23:50 Pulse 102 H 04/05/18 23:50 Resp 19 04/05/18 23:50 BP 118/77 04/05/18 23:50 Pulse Ox - Labs Result Diagrams: 04/06/18 01:09 04/06/18 01:09 Labs: Laboratory Results - last 24 hr 04/05/18 04/05/18 04/05/18 10:35 10:35 15:50 WBC 13.3 H 17.1 H RBC 3.62 L 2.64 L Hgb 10.2 L 7.4 L D Hct 30.6 L 22.4 L MCV 84.6 84.8 MCH 28.2 28.1 MCHC 33.4 33.1 RDW 14.1 13.7 Plt Count 168 175 MPV 10.7 10.6 Neut % (Auto) 74.5 77.8 H Lymph % (Auto) 9.7 L 11.7 L Blount % (Auto) 15.5 H 10.4 H Eos % (Auto) 0.1 0.0 Baso % (Auto) 0.2 0.1 Neut # (Auto) 9.9 H 13.3 H Lymph # (Auto) 1.3 2.0 Blount # (Auto) 2.1 H 1.8 H Eos # (Auto) 0.0 0.0 Baso # (Auto) 0.0 0.0 Neutrophils % (Manual) 77 H Band Neutrophils % 1 Lymphocytes % (Manual) 5 L Monocytes % (Manual) 17 H Toxic Granulation Present Platelet Estimate Normal Hypochromasia (manual) Slight PT INR APTT Sodium Potassium Chloride Carbon Dioxide Anion Gap BUN Creatinine Est GFR ( Amer) Est GFR (Non-Af Amer) Random Glucose Uric Acid Calcium Total Bilirubin AST ALT Alkaline Phosphatase Total Protein Albumin Globulin Albumin/Globulin Ratio Blood Type B POSITIVE Antibody Screen Negative Crossmatch BBK History Checked Patient has bt 04/05/18 04/05/18 04/05/18 15:50 15:50 18:37 WBC RBC Hgb Hct MCV MCH MCHC RDW Plt Count MPV Neut % (Auto) Lymph % (Auto) Blount % (Auto) Eos % (Auto) Baso % (Auto) Neut # (Auto) Lymph # (Auto) Blount # (Auto) Eos # (Auto) Baso # (Auto) Neutrophils % (Manual) Band Neutrophils % Lymphocytes % (Manual) Monocytes % (Manual) Toxic Granulation Platelet Estimate Hypochromasia (manual) PT 10.5 INR 1.0 APTT 31.6 Sodium 137 Potassium 5.0 Chloride 111 H Carbon Dioxide 26 Anion Gap 5 L BUN 14 Creatinine 0.7 Est GFR ( Amer) > 60 Est GFR (Non-Af Amer) > 60 Random Glucose 92 Uric Acid Calcium 7.1 L Total Bilirubin AST ALT Alkaline Phosphatase Total Protein Albumin Globulin Albumin/Globulin Ratio Blood Type B POSITIVE Antibody Screen Negative Crossmatch See Detail BBK History Checked Patient has bt 04/06/18 04/06/18 01:09 01:09 WBC 25.3 H RBC 2.68 L Hgb 7.5 L Hct 22.7 L MCV 84.9 MCH 28.0 MCHC 33.0 RDW 13.5 Plt Count 131 MPV 11.0 Neut % (Auto) 79.1 H Lymph % (Auto) 11.8 L Blount % (Auto) 9.0 Eos % (Auto) 0.0 Baso % (Auto) 0.1 Neut # (Auto) 20.0 H Lymph # (Auto) 3.0 Blount # (Auto) 2.3 H Eos # (Auto) 0.0 Baso # (Auto) 0.0 Neutrophils % (Manual) Band Neutrophils % Lymphocytes % (Manual) Monocytes % (Manual) Toxic Granulation Platelet Estimate Hypochromasia (manual) PT INR APTT Sodium 130 L Potassium 5.4 H Chloride 105 Carbon Dioxide 26 Anion Gap 4 L BUN 18 H Creatinine 0.8 Est GFR ( Amer) > 60 Est GFR (Non-Af Amer) > 60 Random Glucose 78 Uric Acid 8.3 H Calcium 6.8 L Total Bilirubin 0.2 AST 103 H D ALT 97 H D Alkaline Phosphatase 150 H D Total Protein 3.5 L Albumin 1.7 L D Globulin 1.8 L Albumin/Globulin Ratio 0.9 L Blood Type Antibody Screen Crossmatch BBK History Checked Assessment & Plan - Assessment and Plan (Free Text) Assessment: Community Acquired Pneumonia -CT Angiogram: Unremarkable CT pulmonary angiogram. No pulmonary embolus. Polylobar pneumonia identified with [id number] bilateral pleural effusions and compression atelectasis affecting the lower lobes bilaterally. -Azithromycin 500 mg daily -Ceftriaxone 1 gm daily -Patient cleared to enter nursery after 3 days of antibiotics (, 04/08) -Encourage incentive spirometry Hyperkalemia -K 5.4 -Kayexalate 15 g once -Monitor BMP Status-post Cesarian section -Treatment for recovery as per OBGYN DVT Prophylaxis -Patient ambulating <Desiree Chowdhury - Last Filed: 04/06/18 15:49> Meds - Medications Medications: Current Medications Bisacodyl (Dulcolax) 10 mg ME DAILY PRN PRN Reason: Constipation Last Admin: 04/06/18 13:55 Dose: 10 mg Lactated Ringer's (Lactated Ringer's) 1,000 mls @ 125 mls/hr IV .Q8H [facility] Ceftriaxone Sodium 1 gm/ (Sodium Chloride) 100 mls @ 100 mls/hr IVPB DAILY [facility] PRN Reason: Protocol Azithromycin 500 mg/ Sodium (Chloride) 250 mls @ 250 mls/hr IVPB DAILY [facility] PRN Reason: Protocol Ibuprofen (Motrin Tab) 600 mg PO Q6H PRN PRN Reason: Pain, Mild (1-3) Last Admin: 04/06/18 13:56 Dose: 600 mg Labetalol HCl (Trandate) 100 mg PO Q12H [facility] Multivitamins/Minerals (Therapeutic-M Tab) 1 tab PO DAILY [facility] Oxycodone/Acetaminophen (Percocet 5/325 Mg Tab) 1 tab PO Q4 PRN PRN Reason: Pain, moderate (4-7) Stop: 04/08/18 12:42 Simethicone (Mylicon Chew Tab) 80 mg PO PRN PRN PRN Reason: abdominal pain Last Admin: 04/06/18 14:01 Dose: 80 mg Results - Vital Signs Recent Vital Signs: Last Vital Signs Temp 99.4 F 04/05/18 23:50 Pulse 102 H 04/05/18 23:50 Resp 19 04/05/18 23:50 BP 118/77 04/05/18 23:50 Pulse Ox - Labs Result Diagrams: 04/06/18 09:14 04/06/18 09:14 Labs: Laboratory Results - last 24 hr 04/05/18 04/05/18 04/05/18 15:50 15:50 15:50 WBC 17.1 H RBC 2.64 L Hgb 7.4 L D Hct 22.4 L MCV 84.8 MCH 28.1 MCHC 33.1 RDW 13.7 Plt Count 175 MPV 10.6 Neut % (Auto) 77.8 H Lymph % (Auto) 11.7 L Blount % (Auto) 10.4 H Eos % (Auto) 0.0 Baso % (Auto) 0.1 Neut # (Auto) 13.3 H Lymph # (Auto) 2.0 Blount # (Auto) 1.8 H Eos # (Auto) 0.0 Baso # (Auto) 0.0 PT 10.5 INR 1.0 APTT 31.6 Sodium 137 Potassium 5.0 Chloride 111 H Carbon Dioxide 26 Anion Gap 5 L BUN 14 Creatinine 0.7 Est GFR ( Amer) > 60 Est GFR (Non-Af Amer) > 60 Random Glucose 92 Uric Acid Calcium 7.1 L Magnesium Total Bilirubin AST ALT Alkaline Phosphatase Total Protein Albumin Globulin Albumin/Globulin Ratio Blood Type Antibody Screen Crossmatch BBK History Checked 04/05/18 04/06/18 04/06/18 18:37 01:09 01:09 WBC 25.3 H RBC 2.68 L Hgb 7.5 L Hct 22.7 L MCV 84.9 MCH 28.0 MCHC 33.0 RDW 13.5 Plt Count 131 MPV 11.0 Neut % (Auto) 79.1 H Lymph % (Auto) 11.8 L Blount % (Auto) 9.0 Eos % (Auto) 0.0 Baso % (Auto) 0.1 Neut # (Auto) 20.0 H Lymph # (Auto) 3.0 Blount # (Auto) 2.3 H Eos # (Auto) 0.0 Baso # (Auto) 0.0 PT INR APTT Sodium 130 L Potassium 5.4 H Chloride 105 Carbon Dioxide 26 Anion Gap 4 L BUN 18 H Creatinine 0.8 Est GFR ( Amer) > 60 Est GFR (Non-Af Amer) > 60 Random Glucose 78 Uric Acid 8.3 H Calcium 6.8 L Magnesium Total Bilirubin 0.2 AST 103 H D ALT 97 H D Alkaline Phosphatase 150 H D Total Protein 3.5 L Albumin 1.7 L D Globulin 1.8 L Albumin/Globulin Ratio 0.9 L Blood Type B POSITIVE Antibody Screen Negative Crossmatch See Detail BBK History Checked Patient has bt 04/06/18 04/06/18 04/06/18 09:14 09:14 09:14 WBC 25.4 H RBC 2.83 L Hgb 7.8 L Hct 24.1 L MCV 85.2 MCH 27.5 MCHC 32.3 L RDW 13.7 Plt Count 150 MPV 10.9 Neut % (Auto) 75.4 H Lymph % (Auto) 14.8 L Blount % (Auto) 9.5 Eos % (Auto) 0.1 Baso % (Auto) 0.2 Neut # (Auto) 19.2 H Lymph # (Auto) 3.8 Blount # (Auto) 2.4 H Eos # (Auto) 0.0 Baso # (Auto) 0.0 PT INR APTT Sodium 133 Potassium 4.7 Chloride 104 Carbon Dioxide 27 Anion Gap 7 L BUN 19 H Creatinine 0.8 Est GFR ( Amer) > 60 Est GFR (Non-Af Amer) > 60 Random Glucose 109 H Uric Acid Calcium 7.3 L Magnesium 2.8 H Total Bilirubin 0.2 AST 95 H ALT 86 H Alkaline Phosphatase 167 H Total Protein 4.2 L Albumin 2.0 L Globulin 2.2 Albumin/Globulin Ratio 0.9 L Blood Type Antibody Screen Crossmatch BBK History Checked Attending/Attestation - Attestation I have personally seen and examined this patient.: Yes I have fully participated in the care of the patient.: Yes I have reviewed all pertinent clinical information: Yes Notes (Text): Pneumonia , prob bacterial - cont IV Ceftriaxone and Azithro -leukocytosis sec to infection, reactive, from steroids ( pt also received 2 doses of Betamethasone IM) -dyspnea improved , saturation 97% on RA Acute Blood Loss Anemia, post op -Ferrous sulfate bid
[2018-04-06 10:40] LABS: BASO % 0.2 % (0.0-2.0); EOS % 0.1 % (0.0-4.0); HEMOGLOBIN 7.8 g/dL (12.0-16.0); LYMPH # 3.8 K/uL (1.0-4.3); LYMPH % 14.8 % (20.0-40.0); MEAN CELL VOLUME 85.2 fl (81.0-99.0); MEAN CORPUSCULAR HEMOGLOBIN 27.5 pg (27.0-31.0); MEAN CORPUSCULAR HGB CONC 32.3 g/dL (33.0-37.0); MEAN PLATELET VOLUME 10.9 fl (7.2-11.7); MONO # 2.4 K/uL (0.0-0.8); MONO % 9.5 % (0.0-10.0); NEUT # 19.2 K/uL (1.8-7.0); NEUT % 75.4 % (50.0-75.0); NRBC % 0.5 % (0.0-0.0); RBC 2.83 Mil/uL (3.80-5.20); RED CELL DISTRIBUTION WIDTH 13.7 % (11.5-14.5); WHITE BLOOD COUNT 25.4 K/uL (4.8-10.8)
[2018-04-06 11:04] LABS: ALB/GLOB RATIO 0.9 (1.0-2.1); ALT/SGPT 86 U/L (9-52); AST/SGOT 95 U/L (14-36); BLOOD UREA NITROGEN 19 mg/dl (7-17); CALCIUM 7.3 mg/dL (8.4-10.2); GFR NON-AFRICAN AMERICAN > 60
--- NOTE | 2018-04-06 11:18 | OBPPN ---
Datetime: 04/06/2018 08:30 PP Pain Prov: Within normal limits PP Nausea Prov: Denies PP Flatus Prov: No PP BM Prov: No PP Abdomen/Uterus Prov: Normal PP Extremities Prov: Normal PP C/S Incision Prov: Normal PP Progress Note Prov: OB Hospitalist on-call: Sign out rec'd Puja had C/s for worsening maternal status - oxygenation/desaturation. She delivered and CAT sca n was negative for PE but noted to have infiltrates polylobular); atelectasis; and pulmonary edema. She now feels much better. O2 saturation 99% room air A; S/P pre-eclampsia severe elevated LFT's PLAN: FP service consulted (tiffany from [facility])...will continue post op manag ement on OB floor. patient understands her medical condition Vital Signs Provider PP: Reviewed; Within Normal Limits Datetime: 04/06/2018 05:00 PP Breasts Prov: Not Done PP Heart Prov: Normal PP Lungs Prov: Normal PP Lochia Prov: Normal PP Vulva/Perineum Prov: Not Done PP CVA Tenderness Prov: Not Done PP Progress Prov: Not Applicable PP Plan Prov: Continue present management
[2018-04-06] MEDS ORDERED: Lactated Ringer's 1,000 ML IV SCH (11:33)
[2018-04-06] MEDS ORDERED: Oxycodone/Acetaminophen 5/325 mg Tab PO PRN (11:33)
[2018-04-06] MEDS: Simethicone 80 mg Chewtab PO PRN (14:01)
[2018-04-06] MEDS: Azithromycin 500 MG in Sodium Chloride 0.9% 250 ML IVPB SCH (15:47)
[2018-04-06 23:39] VITALS: TEMP 98.3
[2018-04-07 02:45] LABS: BASO % 0.1 % (0.0-2.0); EOS % 0.3 % (0.0-4.0); HEMOGLOBIN 8.7 g/dL (12.0-16.0); LYMPH # 2.6 K/uL (1.0-4.3); LYMPH % 15.8 % (20.0-40.0); MEAN CELL VOLUME 83.8 fl (81.0-99.0); MEAN CORPUSCULAR HEMOGLOBIN 28.5 pg (27.0-31.0); MEAN PLATELET VOLUME 10.2 fl (7.2-11.7); MONO # 1.9 K/uL (0.0-0.8); MONO % 11.5 % (0.0-10.0); NEUT % 72.3 % (50.0-75.0); NRBC % 0.6 % (0.0-0.0); RBC 3.05 Mil/uL (3.80-5.20); RED CELL DISTRIBUTION WIDTH 13.3 % (11.5-14.5); WHITE BLOOD COUNT 16.7 K/uL (4.8-10.8)
[2018-04-07 04:05] LABS: ALB/GLOB RATIO 0.8 (1.0-2.1); ALT/SGPT 67 U/L (9-52); AST/SGOT 57 U/L (14-36); BLOOD UREA NITROGEN 15 mg/dl (7-17); CALCIUM 7.3 mg/dL (8.4-10.2); GFR NON-AFRICAN AMERICAN > 60
[2018-04-07] MEDS: Simethicone 80 mg Chewtab PO PRN ×2 (06:59→21:45)
[2018-04-07] MEDS: Azithromycin 500 MG in Sodium Chloride 0.9% 250 ML IVPB SCH (08:47)
[2018-04-07] MEDS ORDERED: Azithromycin 500 MG in Sodium Chloride 0.9% 250 ML IVPB SCH (09:00)
--- NOTE | 2018-04-07 10:00 | CP.PCM.PN ---
<HeavenGwen - Last Filed: 04/07/18 10:15> Subjective - Date & Time of Evaluation Date of Evaluation: 04/07/18 Time of Evaluation: 09:00 - Subjective Subjective: Patient seen bedside in no acute distress, sitting up eating breakfast. She reports resolution of her chest pain and shortness of breath. Mild dizziness has also resolved. No complaints. Denies chills, headache, change in vision, and vomiting. Objective - Vital Signs/Intake and Output Vital Signs (last 24 hours): Temp Pulse Resp BP Pulse Ox 98.3 F 79 18 131/78 04/07/18 02:01 04/07/18 02:01 04/07/18 02:01 04/07/18 02:01 Intake and Output: 04/07/18 04/07/18 06:59 18:59 Intake Total 375 Balance 375 - Medications Medications: Current Medications Bisacodyl (Dulcolax) 10 mg LA DAILY PRN PRN Reason: Constipation Last Admin: 04/06/18 13:55 Dose: 10 mg Ceftriaxone Sodium 1 gm/ (Sodium Chloride) 100 mls @ 100 mls/hr IVPB DAILY [facility] PRN Reason: Protocol Last Admin: 04/06/18 17:09 Dose: 100 mls/hr Azithromycin 500 mg/ Sodium (Chloride) 250 mls @ 250 mls/hr IVPB DAILY [facility] PRN Reason: Protocol Last Admin: 04/07/18 08:47 Dose: 250 mls/hr Ibuprofen (Motrin Tab) 600 mg PO Q6H PRN PRN Reason: Pain, Mild (1-3) Last Admin: 04/07/18 06:59 Dose: 600 mg Labetalol HCl (Trandate) 100 mg PO Q12H [facility] Last Admin: 04/07/18 02:18 Dose: Not Given Multivitamins/Minerals (Therapeutic-M Tab) 1 tab PO DAILY [facility] Simethicone (Mylicon Chew Tab) 80 mg PO PRN PRN PRN Reason: abdominal pain Last Admin: 04/07/18 06:59 Dose: 80 mg - Labs Labs: 04/07/18 02:30 04/07/18 02:30 PT 10.5 Seconds (9.8-13.1) 04/05/18 15:50 INR 1.0 04/05/18 15:50 APTT 31.6 Seconds (25.6-37.1) 04/05/18 15:50 - Constitutional Appears: Well, Non-toxic - Head Exam Head Exam: ATRAUMATIC, NORMAL INSPECTION - Eye Exam Eye Exam: Normal appearance - ENT Exam ENT Exam: Mucous Membranes Moist - Neck Exam Neck Exam: Full ROM - Respiratory Exam Respiratory Exam: Clear to Ausculation Bilateral, NORMAL BREATHING PATTERN. absent: Wheezes, Respiratory Distress - Cardiovascular Exam Cardiovascular Exam: REGULAR RHYTHM - GI/Abdominal Exam Additional comments: dressing dry and intact - Extremities Exam Extremities Exam: Normal Inspection - Neurological Exam Neurological Exam: Alert, Awake, Oriented x3 - Psychiatric Exam Psychiatric exam: Normal Affect, Normal Mood - Skin Skin Exam: Normal Color, Warm Assessment and Plan - Assessment and Plan (Free Text) Assessment: Community Acquired Pneumonia -CT Angiogram: Unremarkable CT pulmonary angiogram. No pulmonary embolus. Polylobar pneumonia identified with [id number] bilateral pleural effusions and compression atelectasis affecting the lower lobes bilaterally. -Continue antibiotics: Azithromycin 500 mg daily, Ceftriaxone 1 gm daily -Patient cleared to enter nursery , 04/08 (s/p 3 days antibiotics) -Encourage incentive spirometry Hyperkalemia -Resolved K 4.3 -04/06 K 5.4, Kayexalate 15 g -Monitor BMP Leukocytosis -WBC 16.7 -Trending down (04/06: 25.4, 25.3, 04/05: 17.1) -Likely reactive, secondary to Cesarian and 2 doses Betamethasone IM Status-post Cesarian section -Treatment for recovery as per OBGYN DVT Prophylaxis -Patient ambulating <Desiree Chowdhury - Last Filed: 04/07/18 15:56> Objective - Vital Signs/Intake and Output Vital Signs (last 24 hours): Temp Pulse Resp BP Pulse Ox 98.3 F 79 18 131/78 04/07/18 02:01 04/07/18 02:01 04/07/18 02:01 04/07/18 02:01 Intake and Output: 04/07/18 04/07/18 06:59 18:59 Intake Total 375 Balance 375 - Medications Medications: Current Medications Bisacodyl (Dulcolax) 10 mg LA DAILY PRN PRN Reason: Constipation Last Admin: 04/06/18 13:55 Dose: 10 mg Ceftriaxone Sodium 1 gm/ (Sodium Chloride) 100 mls @ 100 mls/hr IVPB DAILY [facility] PRN Reason: Protocol Last Admin: 04/07/18 10:08 Dose: 100 mls/hr Azithromycin 500 mg/ Sodium (Chloride) 250 mls @ 250 mls/hr IVPB DAILY [facility] PRN Reason: Protocol Last Admin: 04/07/18 08:47 Dose: 250 mls/hr Ibuprofen (Motrin Tab) 600 mg PO Q6H PRN PRN Reason: Pain, Mild (1-3) Last Admin: 04/07/18 06:59 Dose: 600 mg Labetalol HCl (Trandate) 100 mg PO Q12H [facility] Last Admin: 04/07/18 02:18 Dose: Not Given Multivitamins/Minerals (Therapeutic-M Tab) 1 tab PO DAILY [facility] Last Admin: 04/07/18 10:11 Dose: 1 tab Senna/Docusate Sodium (Senokot S 50 Mg-8.6 Mg) 1 tab PO HS [facility] Simethicone (Mylicon Chew Tab) 80 mg PO PRN PRN PRN Reason: abdominal pain Last Admin: 04/07/18 06:59 Dose: 80 mg - Labs Labs: 04/07/18 02:30 04/07/18 02:30 PT 10.5 Seconds (9.8-13.1) 04/05/18 15:50 INR 1.0 04/05/18 15:50 APTT 31.6 Seconds (25.6-37.1) 04/05/18 15:50 Attending/Attestation - Attestation I have personally seen and examined this patient.: Yes I have fully participated in the care of the patient.: Yes I have reviewed all pertinent clinical information, including history, physical exam and plan: Yes Notes (Text): Pt cinically improved - afebrile, leukocytosis trending down, rales improved, saturation now normal on RA Repeat CXR (PA and lateral) in am - if improve , may change IV abx to PO after tomorrow dose - Azithro 500 mg daily and Cefdinir 300mg bid x 1 more week
[2018-04-07] MEDS: Multivitamin With Minerals Tab PO SCH (10:11)
--- NOTE | 2018-04-07 12:55 | OBPPN ---
Datetime: 04/07/2018 06:16 PP Pain Prov: Within normal limits PP Nausea Prov: Denies PP Flatus Prov: Yes PP BM Prov: Yes PP Breasts Prov: Not Done PP Heart Prov: Normal PP Lungs Prov: Normal PP Abdomen/Uterus Prov: Normal PP Lochia Prov: Normal PP Vulva/Perineum Prov: Not Done PP CVA Tenderness Prov: Normal PP Extremities Prov: Normal PP C/S Incision Prov: Normal PP Progress Prov: Not Applicable PP Impression Prov: Normal progression PP Plan Prov: Continue present management PP Progress Note Prov: Patient seen and examined at the bedside in morning. Patient sitting up in bed, breathing comfortably. She denies chest pain, shortness of breath, headache. She states that she is feeling better today. Endorses having passing flatus and having BM. Lochia like menses. VS: wnl Gen: Not in acute distress,comfortable. Lungs: CTA bilaterally CVS: RRR, S1, S2 WNL, no murmurs. Abd: ND, +BS, appropriated tenderness, fundus firm at umbilical level. incision site int act Ext: No edema, negative calf tenderness. Neuro/psych: AAOx3 A/P: 17 y/o female at 33.4 PPD 2 s/p emergency -Hgb 8.7 s/p 2 units of PRBC transfusion. -Labetalol not given over night; BP wnl -WBCs down to 16.7 from yesterday's 25.4 -LFTs trending down AST/ALT 57/67 -Hyponatremia and hyperkalemia resolved -Ibuprofen 600 mg for pain mgmt -c/w azithromycin 500mg IVPB QD and ceftriazone 1gm IVPB QD -Medicine consulted; recs appreciated Ceci Whitman PGY-I Patient seen and evaluated by me today. Agree with above resident note. Patient ambulating well an d O2sat 100% on RA., Continue Abx. Continue pain meds for pain as needed. --Dr. Wilson Vital Signs Provider PP: Reviewed; Within Normal Limits
[2018-04-07] MEDS ORDERED: Docusate-Senna 50 mg-8.6 mg Tab PO SCH (22:00)
[2018-04-08 07:45] LABS: MEAN CELL VOLUME 84.3 fl (81.0-99.0); MEAN CORPUSCULAR HEMOGLOBIN 29.1 pg (27.0-31.0); MEAN CORPUSCULAR HGB CONC 34.5 g/dL (33.0-37.0); RBC 3.07 Mil/uL (3.80-5.20); RED CELL DISTRIBUTION WIDTH 13.8 % (11.5-14.5)
[2018-04-08] MEDS: Multivitamin With Minerals Tab PO SCH (08:37)
[2018-04-08] MEDS: Azithromycin 500 MG in Sodium Chloride 0.9% 250 ML IVPB SCH (09:00)
--- NOTE | 2018-04-08 09:13 | RAD ---
HISTORY: COMPARISON: 04/13/2018. TECHNIQUE: Chest PA and lateral FINDINGS: LINES AND TUBES: None. LUNG AND PLEURA: The lungs are well inflated and clear. No pleural effusion or pneumothorax. HEART AND MEDIASTINUM: The heart is not enlarged. The hilar and mediastinal contours are within normal limits. SKELETAL STRUCTURES: The bony structures are within normal limits for the patient's age. VISUALIZED UPPER ABDOMEN: Normal. OTHER FINDINGS: None. IMPRESSION: No active pulmonary disease.
--- NOTE | 2018-04-08 10:43 | OBPPN ---
Datetime: 04/08/2018 05:35 PP Pain Prov: Within normal limits PP Nausea Prov: Denies PP Flatus Prov: Yes PP BM Prov: Yes PP Breasts Prov: Not Done PP Heart Prov: Normal PP Lungs Prov: Normal PP Abdomen/Uterus Prov: Normal PP Lochia Prov: Normal PP Vulva/Perineum Prov: Not Done PP CVA Tenderness Prov: Normal PP Extremities Prov: Normal PP C/S Incision Prov: Normal PP Progress Prov: Not Applicable PP Impression Prov: Normal progression PP Plan Prov: Continue present management PP Progress Note Prov: Patient seen and examined at the bedside in morning. Patient sitting up in be d, breathing comfortably. She states that she is feeling better today. Lochia like menses. Denies SO B, chest pain. VS: wnl Gen: Not in acute distress,comfortable. Lungs: CTA bilaterally CVS: RRR, S1, S2 WNL, no murmurs. Abd: ND, +BS, appropriated tenderness, fundus firm at umbilical level. incision site int act Ext: No edema, negative calf tenderness. Neuro/psych: AAOx3 A/P: 17 y/o female at 33.4 PPD3 s/p emergency -Vital signs stable -CXR later today -Ibuprofen 600 mg for pain mgmt -c/w azithromycin 500mg IVPB QD and ceftriazone 1gm IVPB QD -Medicine consulted; recs appreciated (if CXR improved, switch to PO abx azithromycin 500mg QD and cefdinir 300 BID for 1 week) Ceci Whitman PGY-I Attending addendum: I saw and examined the patient myself this morning at bedside. I reviewed the resident note above and agree with findings and management. Patient's exam is unremarkable. CRX: normal lungs D/C home today rx to complete 1 week of abx start tomorrow azithromycin 500mg po daily cefdinir 300mg po bid support in delivery discussed Aminata Carcamo MD Vital Signs Provider PP: Reviewed; Within Normal Limits
--- NOTE | 2018-04-08 10:46 | OBDCSUM ---
Datetime: 04/08/2018 10:41 Discharged to, Provider: Home Follow up at, Provider: [facility] Disch Instr Activity: May be up to bathroom; May be up for meals; May Shower Disch Instr Diet: Regular Discharge Instructions, Provider: Specific instructions as noted Discharge Diagnosis, Provider: Delivery Follow up in weeks, Provider: 2wks wound check Disch Referrals: None Contraception discussed, Prov: Yes Disch Activity Restrictions: No exercising; No lifting; No driving; Nothing in vagina - [place], tampons, douche Discharge Comment, Provider: f/u in 1-2 wks for wound check f/u in 4-6wks for pp appt start antibiotics tomorrow 04/09/18 and complete course x 5 more days Discharge Diagnosis Prov Other: pneumonia Contraception after Delivery: Undecided
--- NOTE | 2018-04-08 10:57 | CP.PCM.PN ---
Subjective - Date & Time of Evaluation Date of Evaluation: 04/08/18 Time of Evaluation: 09:15 - Subjective Subjective: Patient seen bedside in no acute distress, sitting up eating breakfast. No complaints. Denies chills, nausea, dizziness, headache, shortness of breath, chest pain, change in vision, vomiting and diarrhea. CXR today shows no active pulmonary disease. Patient is medically cleared for discharge to home with PO Azithromycin 500 mg daily and Cefdinir 300mg bid x 1 week. Objective - Vital Signs/Intake and Output Vital Signs (last 24 hours): Temp Pulse Resp BP Pulse Ox 98.3 F 79 18 131/78 04/07/18 02:01 04/07/18 02:01 04/07/18 02:01 04/07/18 02:01 - Medications Medications: Current Medications Bisacodyl (Dulcolax) 10 mg OR DAILY PRN PRN Reason: Constipation Last Admin: 04/06/18 13:55 Dose: 10 mg Ceftriaxone Sodium 1 gm/ (Sodium Chloride) 100 mls @ 100 mls/hr IVPB DAILY KARL PRN Reason: Protocol Last Admin: 04/07/18 10:08 Dose: 100 mls/hr Azithromycin 500 mg/ Sodium (Chloride) 250 mls @ 250 mls/hr IVPB DAILY KARL PRN Reason: Protocol Last Admin: 04/08/18 09:00 Dose: 250 mls/hr Ibuprofen (Motrin Tab) 600 mg PO Q6H PRN PRN Reason: Pain, Mild (1-3) Last Admin: 04/08/18 05:19 Dose: 600 mg Labetalol HCl (Trandate) 100 mg PO Q12H KARL Last Admin: 04/08/18 09:03 Dose: Not Given Multivitamins/Minerals (Therapeutic-M Tab) 1 tab PO DAILY KARL Last Admin: 04/08/18 08:37 Dose: 1 tab Senna/Docusate Sodium (Senokot S 50 Mg-8.6 Mg) 1 tab PO HS KARL Last Admin: 04/07/18 21:42 Dose: 1 tab Simethicone (Mylicon Chew Tab) 80 mg PO PRN PRN PRN Reason: abdominal pain Last Admin: 04/07/18 21:45 Dose: 80 mg - Labs Labs: 04/08/18 07:19 04/07/18 02:30 PT 10.5 Seconds (9.8-13.1) 04/05/18 15:50 INR 1.0 04/05/18 15:50 APTT 31.6 Seconds (25.6-37.1) 04/05/18 15:50 - Constitutional Appears: Well, Non-toxic - Head Exam Head Exam: ATRAUMATIC - Eye Exam Eye Exam: Normal appearance - ENT Exam ENT Exam: Mucous Membranes Moist - Neck Exam Neck Exam: Full ROM. absent: Tenderness - Respiratory Exam Respiratory Exam: Clear to Ausculation Bilateral, NORMAL BREATHING PATTERN. absent: Rhonchi, Wheezes, Respiratory Distress - Cardiovascular Exam Cardiovascular Exam: REGULAR RHYTHM - GI/Abdominal Exam GI & Abdominal Exam: Soft, Normal Bowel Sounds. absent: Rebound Additional comments: CS wound bandage dry and intact - Extremities Exam Extremities Exam: Normal Inspection - Back Exam Back Exam: NORMAL INSPECTION - Neurological Exam Neurological Exam: Alert, Awake, Normal Gait, Oriented x3 - Psychiatric Exam Psychiatric exam: Normal Affect, Normal Mood - Skin Skin Exam: Normal Color Assessment and Plan - Assessment and Plan (Free Text) Assessment: Community Acquired Pneumonia -CT Angiogram: Unremarkable CT pulmonary angiogram. No pulmonary embolus. Polylobar pneumonia identified with [id number] bilateral pleural effusions and compression atelectasis affecting the lower lobes bilaterally. -Azithromycin 500 mg daily, Ceftriaxone 1 gm daily: 3 doses total -CXR (04/08): No active pulmonary disease -Discharge to home on PO Azithro 500 mg daily and Cefdinir 300mg bid x 1 more week Hyperkalemia -Resolved K 4.3 -04/06 K 5.4, Kayexalate 15 g -Monitor BMP Leukocytosis -WBC 12 -Afebrile -Trending down (04/07 16.7; 04/06: 25.4, 25.3, 04/05: 17.1) -Likely reactive, secondary to Cesarian and 2 doses Betamethasone IM Status-post Cesarian section -Treatment for recovery as per OBGYN DVT Prophylaxis -Patient ambulating
[2018-04-08 21:14] VITALS: BP 98/67; PULSE 90; RESP 20; O2SAT 99
== END 2018-04-08 15:30 | disposition home or self-care (01) | DRG 650 ==
LOC: H.EROB2 14:50 → H.L&D 17:50 → H.OB/GYN 04-06 11:00
PROVIDERS: ADMIT Obstetrics & Gynecology; ATTEND Obstetrics & Gynecology
PROC: 4A1HXCZ Monitoring of Products of Conception, Cardiac Rate, External Approach (ICD-10-PCS; 2018-04-02)
PROC: 10D00Z1 Extraction of Products of Conception, Low, Open Approach (ICD-10-PCS; principal; 2018-04-05)
PROC: 30233N1 Transfusion of Nonautologous Red Blood Cells into Peripheral Vein, Percutaneous Approach (ICD-10-PCS; 2018-04-05)
PROC: 3E0F7GC Introduction of Other Therapeutic Substance into Respiratory Tract, Via Natural or Artificial Opening (ICD-10-PCS; 2018-04-05)
DX: O60.14X0 Preterm labor third trimester with preterm delivery third trimester, not applicable or unspecified (principal); J15.9 Unspecified bacterial pneumonia; J98.11 Atelectasis; J90 Pleural effusion, not elsewhere classified; D62 Acute posthemorrhagic anemia; O90.81 Anemia of the puerperium; E87.1 Hypo-osmolality and hyponatremia; E87.5 Hyperkalemia; O14.14 Severe pre-eclampsia complicating childbirth; O99.53 Diseases of the respiratory system complicating the puerperium; O99.285 Endocrine, nutritional and metabolic diseases complicating the puerperium; D72.828 Other elevated white blood cell count; Z3A.34 34 weeks gestation of pregnancy; Z37.0 Single live birth

== ENCOUNTER 2018-11-30 12:36 | Emergency (ER) | payer OTHER ==
[2018-11-30 12:36] VITALS: BMI 21.6
[2018-11-30 12:43] VITALS: O2SAT 100
[2018-11-30] MEDS: Lactated Ringer's 1,000 ML IV SCH (14:08)
--- NOTE | 2018-11-30 14:49 | US ---
Date of service: 11/30/2018 PROCEDURE: OB Pelvic Ultrasound HISTORY: Pelvic pain LMP: 09/16/2018 COMPARISON: None available. TECHNIQUE: Transvaginal pelvic ultrasound was performed. FINDINGS: UTERUS: Single Live intrauterine gestation. Yolk sac sac is visualized. CRL measures 3.2 cm equivalent to 10 weeks and 1 day of gestational age. Gestational sac diameter measures 4.7 cm equivalent to 10 weeks and 3 days of gestational age. age (Ultrasound estimated): 10 weeks and 0 day Date of delivery (Ultrasound estimated) : 06/28/2019 Heart rate: 168 bpm. Evelia-gestational hemorrhage: None. Measures 8.5 x 9.7 x 5.9 cm. Normal in size and appearance. No fibroid or other mass lesion seen. CERVIX: Long and closed. Cervical length measures 3.6 cm. No cervical abnormality seen. RIGHT OVARY: Measures 2.4 x 2.4 x 1.8 cm. No mass. Normal flow. LEFT OVARY: Measures 2.3 x 2.1 x 1.2 cm. No mass. Normal flow. FREE FLUID: None. OTHER FINDINGS: None. IMPRESSION: Single live intrauterine gestation with mean gestational age of 10 weeks and 0 day. The estimated date of delivery by ultrasound is 06/28/2019. The ultrasound dates correspond with the clinical dates.
--- NOTE | 2018-11-30 14:49 | ED PDOC ---
HPI: General Adult Time Seen by Provider: 11/30/18 13:13 Chief Complaint (Nursing): Dizziness/Lightheaded History Per: Patient Additional Complaint(s): Pt. states for the past 2 weeks she's had pelvic pain, morning nausea with vomiting, and weakness. Reports 3 days ago she did a home test which was positive. Pt. has not had any care for this . Denies vaginal bleeding, hx of ectopic , hematemesis, diarrhea, fever, chest pain, SOB, back pain, flank pain. Past Medical History Reviewed: Historical Data, Nursing Documentation, Vital Signs Vital Signs: Last Vital Signs Temp 97.0 F L 11/30/18 12:39 Pulse 92 H 11/30/18 12:39 Resp 16 11/30/18 12:39 BP 129/81 11/30/18 12:39 Pulse Ox 100 11/30/18 12:39 Primary Care Provider: FAMILY PROVIDER,NO - Medical History PMH: HTN Denies: Depression, Diabetes - Family History Family History: States: No Known Family Hx - Home Medications Home Medications: Ambulatory Orders Medication Instructions Recorded Azithromycin [Zithromax] 500 mg PO DAILY 5 Days #5 tab 04/08/18 Cefdinir [Omnicef] 300 mg PO BID #10 cap 04/08/18 Ibuprofen [Motrin Tab] 600 mg PO Q6H PRN #20 tab 04/08/18 Ibuprofen [Motrin Tab] 600 mg PO Q6H PRN #20 tab 04/08/18 Multimineral/Multivitamin 1 tab PO DAILY tab 04/08/18 [Therapeutic-M Tab] Multimineral/Multivitamin 1 tab PO DAILY tab 04/08/18 [Therapeutic-M Tab] Nitrofurantoin Macrocrystals 100 mg PO BID #14 cap 11/30/18 [Macrobid] - Allergies Allergies/Adverse Reactions: Allergies Allergy/AdvReac Type Severity Reaction Status Date / Time No Known Allergies Allergy Verified 11/30/18 12:39 Review of Systems ROS Statement: Except As Marked, All Systems Reviewed And Found Negative Gastrointestinal: Positive for: Nausea, Vomiting Genitourinary Female: Positive for: Pelvic Pain Physical Exam - Physical Exam Appears: Positive for: Well, Non-toxic, No Acute Distress Skin: Positive for: Normal Color, Warm. Negative for: Rash Eye Exam: Positive for: Normal appearance, EOMI, PERRL. Negative for: Conjunctival injection (b/l) Cardiovascular/Chest: Positive for: Regular Rate, Rhythm Respiratory: Positive for: Normal Breath Sounds. Negative for: Respiratory D istress Gastrointestinal/Abdominal: Positive for: Normal Exam, Bowel Sounds, Soft. Negative for: Tenderness (including pelvis) Back: Negative for: L CVA Tenderness, R CVA Tenderness Neurological/Psych: Positive for: Awake, Alert, Oriented (x3) - Laboratory Results Result Diagrams: 11/30/18 15:00 11/30/18 15:00 Urine POC: Positive - ECG O2 Sat by Pulse Oximetry: 100 - Progress ED Course And Treament: Labs, TVUS, IV LR bolus x 1 ordered. 1450 TVUS: IMPRESSION: Single live intrauterine gestation with mean gestational age of 10 weeks and 0 day. The estimated date of delivery by ultrasound is 06/28/2019. The ultrasound dates correspond with the clinical dates. Pt. reports feeling better. Informed of results and advised to f/u with OBGYN f or further evaluation but is to return to ED immediately if symptoms worsen. Disposition - Clinical Impression Clinical Impression: UTI (urinary tract infection) - Patient ED Disposition Is Patient to be Admitted: No - Disposition Referrals: [facility] [Outside] Disposition: Routine/Home Disposition Time: 14:50 Condition: IMPROVED Additional Instructions: FOLLOW UP WITH OBGYN FOR FURTHER EVALUATION RETURN TO ED IMMEDIATELY IF SYMPTOMS WORSEN LEVON ISABEL, thank you for letting us take care of you today. Your provider was Angelica Sigala MD and you were treated for DIZZINESS. The emergency medical care you received today was directed at your acute symptoms. If you were prescribed any medication, please fill it and take as directed. It may take several days for your symptoms to resolve. Return to the Emergency Department if your symptoms worsen, do not improve, or if you have any other problems. Please contact your doctor or call one of the physicians/clinics you have been referred to that are listed on the Patient Visit Information form that is included in your discharge packet. Bring any paperwork you were given at discharge with you along with any medications you are taking to your follow up visit. Our treatment cannot replace ongoing medical care by a primary care provider outside of the emergency department. Thank you for allowing the [facility] team to be part of your care today. If you had an X-Ray or CT scan: A Radiologist will review the ED reading if any change in treatment is needed we will contact you. If you had a blood, urine, or wound culture: It will take several days for the results, if any change in treatment is needed we will contact you. If you had an STI test: It will take 48 hours for the results. Please call after 1 week if you have not heard back. Prescriptions: Nitrofurantoin Macrocrystals [Macrobid] 100 mg PO BID #14 cap Instructions: Urinary Tract Infection, Adult (DC) Forms: [employer] (Italian) Print Language: CHINESE
[2018-11-30 15:16] LABS: SQUAMOUS EPITHIAL 2 /hpf (0-5); URINE BACTERIA FEW (<OCC); URINE BILIRUBIN NEGATIVE (NEGATIVE); URINE BLOOD NEGATIVE (NEGATIVE); URINE CLARITY CLOUDY (Clear); URINE COLOR YELLOW (YELLOW); URINE GLUCOSE (UA) NEG (NEGATIVE); URINE PROTEIN 100 mg/dL (NEGATIVE); URINE UROBILINOGEN 0.2-1.0 mg/dL (0.2-1.0)
[2018-11-30 15:17] LABS: URINE LEUKOCYTE ESTERASE MODERATE Leu/uL (Negative)
[2018-11-30 15:18] LABS: BASO % 0.3 % (0.0-2.0); EOS % 0.1 % (0.0-4.0); LYMPH # 1.3 K/uL (1.0-4.3); LYMPH % 16.3 % (20.0-40.0); MEAN CELL VOLUME 84.7 fl (81.0-99.0); MEAN CORPUSCULAR HEMOGLOBIN 29.8 pg (27.0-31.0); MEAN CORPUSCULAR HGB CONC 35.2 g/dL (33.0-37.0); MEAN PLATELET VOLUME 8.5 fl (7.2-11.7); MONO # 0.8 K/uL (0.0-0.8); MONO % 9.9 % (0.0-10.0); NEUT # 5.7 K/uL (1.8-7.0); NEUT % 73.4 % (50.0-75.0); NRBC % 0.1 % (0.0-0.0); RBC 4.71 Mil/uL (3.80-5.20); RED CELL DISTRIBUTION WIDTH 13.2 % (11.5-14.5); WHITE BLOOD COUNT 7.7 K/uL (4.8-10.8)
[2018-11-30 15:34] LABS: ALB/GLOB RATIO 1.4 (1.0-2.1); ALBUMIN 4.5 g/dL (3.5-5.0); ALT/SGPT 31 U/L (9-52); AST/SGOT 33 U/L (14-36); BLOOD UREA NITROGEN 5 mg/dl (7-17); CALCIUM 9.1 mg/dL (8.4-10.2); GFR NON-AFRICAN AMERICAN > 60
[2018-11-30 19:36] VITALS: BP 124/67; PULSE 70; RESP 18; TEMP 98.2
== END 2018-11-30 15:30 | disposition home or self-care (01) ==
LOC: H.ER 12:36
DX: O23.41 Unspecified infection of urinary tract in pregnancy, first trimester (principal); O16.1 Unspecified maternal hypertension, first trimester; Z3A.10 10 weeks gestation of pregnancy; O21.9 Vomiting of pregnancy, unspecified
CPT/HCPCS: 76817; 80053; 81003; 81025; 82948; 84702; 85025; 87086; 87181; 99283; J7120